=== PATIENT | female | born 1975 | race Caucasian/White ===

== ENCOUNTER 2022-09-12 07:27 | Outpatient (CLI) | payer OTHER, SELFPAY ==
--- NOTE | ~2022-09-12 | MM_ITS ---
EXAMINATION: MM screening aleshia BI w rip HISTORY: Screening mammogram TECHNIQUE: Craniocaudal and mediolateral oblique 3-D tomosynthesis images were obtained and synthetic 2-D images were generated. CAD analysis was submitted and interpreted. COMPARISON: 12/21/2017 bilateral screening mammogram BREAST PARENCHYMAL COMPOSITION: The breasts are heterogeneously dense, which may obscure small masses . FINDINGS: There is an apparently new approximately 4 x 6.5 mm opacity in the posterior upper outer le ft breast. Diagnostic left mammogram and left breast ultrasound examination are recommended. Otherwise there is no evidence of suspicious mass, calcification, or architectural distortion to sugg est malignancy in either breast. There has been no other suspicious interval change. IMPRESSION: 1. Apparently new approximately 4 x 6.5 mm opacity in posterior upper outer left breast 2. Diagnostic left mammogram and left breast ultrasound examination are recommended BI-RADS Category 0: Incomplete: Needs additional imaging evaluation. Reviewed, dictated and finalized at location A. [employer] IMPRESSION: 1. Apparently new approximately 4 x 6.5 mm opacity in posterior upper outer lef t breast 2. Diagnostic left mammogram and left breast ultrasound examination are recomme nded BI-RADS Category 0: Incomplete: Needs additional imaging evaluation.
== END 2022-09-12 07:28 | disposition home or self-care (01) ==
PROVIDERS: PCP Family Medicine; Visit Provider Physician Assistant
DX: Z12.31 Encounter for screening mammogram for malignant neoplasm of breast (principal); R92.8 Other abnormal and inconclusive findings on diagnostic imaging of breast
CPT/HCPCS: 77063; 77067

== ENCOUNTER 2022-10-14 10:57 | Outpatient (CLI) | payer OTHER, SELFPAY ==
--- NOTE | ~2022-10-14 | MMUS_ITS ---
EXAMINATION: MM diagnostic aleshia LT w rip, US breast LT limited HISTORY: Apparently new approximately 4 x 6.5 mm opacity in the posterior upper outer left breast on September 12, 2022 screening mammogram TECHNIQUE: Additional 3-D tomosynthesis images of the left breast were performed and synthetic 2-D im ages were generated. CAD analysis was submitted and interpreted. High resolution upper outer quadrant left breast ultrasound was performed. COMPARISON: September 12, 2022, December 21, 2017 bilateral screening mammogram examinations FINDINGS: MAMMOGRAPHIC FINDINGS: Approximately 5.5 x 6.7 mm circumscribed opacity is noted in the posterior upper outer left breast. T his has benign mammographic appearance. No suspicious mass, architectural distortion, malignant calcification, skin thickening or retraction is noted otherwise. ULTRASOUND: 12:00 2 cm from nipple: Parallel circumscribed 5.6 x 3.6 x 5.0 mm hypoechoic lesion without internal vascularity or suspicious shadowing, benign in appearance 1:00 3 cm from nipple: Circumscribed irregular parallel hypoechoic approximately 5.1 x 4 x 5.6 mm les ion without internal vascularity or posterior shadowing. 6 month ultrasound guided follow-up is recom mended. 1:00 3 cm from nipple: Circumscribed 3 x 5.3 x 4.2 mm complicated lesion without internal vascularity or posterior shadowing, likely benign 2:00 7 cm from nipple: 6.8 x 4.4 x 6.2 mm simple cyst with through transmission posterior enhancement 2:00 1 cm from nipple: Circumscribed 3.3 x 5 x 4 mm hypoechoic lesion with through transmission and p osterior enhancement, no internal vascularity, benign in appearance 3:00 2 cm from nipple: Mildly irregular circumscribed approximately 5.4 x 2.8 x 4.3 mm lesion without internal vascularity or posterior shadowing, probably benign; six-month follow-up ultrasound is jen mmended IMPRESSION: 1. Probably benign sonographic lesions of left breast at 1:00 3 cm from nipple and 3:00 2 cm from nip ple; 6 month since ultrasound follow-up of these areas is recommended 2. Recommend 6 month follow-up ultrasound at left breast 1:00 3 cm from nipple and 3:00 2 cm from nip ple BI-RADS category 3, probably benign findings. Reviewed, dictated and finalized at location A. IMPRESSION: 1. Probably benign sonographic lesions of left breast at 1:00 3 cm from nipple and 3:00 2 cm from nipple; 6 month since ultrasound follow-up of these areas is recommended 2. Recommend 6 month follow-up ultrasound at left breast 1:00 3 cm from nipple and 3:00 2 cm from nipple BI-RADS category 3, probably benign findings.
== END 2022-10-14 10:58 | disposition home or self-care (01) ==
PROVIDERS: PCP Family Medicine; Visit Provider Physician Assistant
DX: R92.8 Other abnormal and inconclusive findings on diagnostic imaging of breast (principal)
CPT/HCPCS: 76642; 77061; 77065; G0279